=== PATIENT | female | born 1970 | race Caucasian/White ===

== ENCOUNTER 2018-11-18 06:56 | Day surgery (SDC) | payer OTHER ==
[2018-11-18 07:33] VITALS: BMI 25.7
[2018-11-18] MEDS ORDERED: ONDANSETRON 4 MG/2 ML VIAL IVPUSH PRN ×2 (09:50→16:32)
[2018-11-18] MEDS ORDERED: PROMETHAZINE HCL 25 MG/1 ML VIAL IVPUSH PRN (09:50)
[2018-11-18] MEDS ORDERED: LIDOCAINE HCL 1%, 10 MG/ML (20ML VIAL) ONE (09:52)
[2018-11-18] MEDS ORDERED: LACTATED RINGERS SOLUTION 1,000 ML IV SCH (10:00)
[2018-11-18] MEDS ORDERED: MIDAZOLAM HCL 2 MG/2 ML SINGLE DOSE VIAL ONE (10:03)
[2018-11-18] MEDS ORDERED: PROPOFOL 20 ML ONE (10:03)
[2018-11-18] MEDS ORDERED: LIDOCAINE HCL/PF 2% SDV 5ML VIAL ONE (10:05)
[2018-11-18] MEDS ORDERED: SODIUM CHLORIDE 0.9% P/F 10 ML VIAL IJ ONE (10:22)
[2018-11-18] MEDS ORDERED: ceFAZolin SODIUM 1 GM VIAL ONE (10:22)
[2018-11-18] MEDS ORDERED: ceFAZolin SODIUM 1 GM VIAL IVPB ONE (10:26)
[2018-11-18] MEDS ORDERED: LIDOCAINE HCL 1%, 10 MG/ML (20ML VIAL) NR ONE (10:48)
[2018-11-18] MEDS ORDERED: METHYLENE BLUE 1% 10 MG/1 ML VIAL NR ONE (10:48)
--- NOTE | 2018-11-18 12:53 | OP ---
DATE OF OPERATION: 11/18/2018 PREOPERATIVE DIAGNOSES: Left breast intraductal papilloma, left breast nipple discharge. SURGEON: Fernanda Thomson MD ANESTHESIA: Local, IV sedation. ESTIMATED BLOOD LOSS: Minimal. COMPLICATIONS: None. This was a sterile procedure. INDICATION FOR PROCEDURE: Patient presented with a bloody nipple discharge spontaneously from the left central slightly inner duct. She had a mammogram and ultrasound. The ultrasound noted a dilated duct with a nodule in the left breast 9 o'clock retroareolar location. She underwent a needle biopsy and pathology shows an intraductal papilloma. My recommendation was excision of the papilloma as well as a nipple duct exploration. The procedure was discussed with all her questions answered. PROCEDURE IN DETAIL: Patient brought to [facility] on [address]. Taken to breast imaging where a wire was used to localize the clip in the inner left breast. She was then brought into the operating room and after IV sedation, IV antibiotics the left breast was prepped and draped in the usual sterile fashion. The area on the inner and retroareolar left breast was anesthetized with 1% lidocaine without epinephrine. The brownish nipple discharge from the left 9 o'clock duct was noted. The duct was then dilated up to a No. 2 dilator and 0.2 mL of methylene blue was injected with a 20-gauge Angiocath into the duct for identification. A left breast periareolar incision was made in the inner left breast and the wire was used as a guide to get down to the area of interest. It was excised en bloc. This seemed to be pointing to the same duct with the discharge. The blue dye helped me identify the duct as well and distally the duct was taken up to the nipple dermis. This was tagged with a silk stitch at the nipple inner duct and the specimen was then sent for specimen radiograph. Specimen radiograph showed the clip and wire to be intact within the specimen. This was then sent to Pathology for permanent section. Hemostasis assured with electrocautery. The parenchyma approximated with interrupted 2-0 Vicryl. Skin approximated with interrupted 2-0 Vicryl and running 4-0 Biosyn. A sterile dressing with Tegaderm, 4 x 4's applied. She tolerated procedure well, was taken to recovery in good condition. FERNANDA THOMSON M.D. [id number]
[2018-11-18 13:39] VITALS: BP 118/65; PULSE 73; TEMP 97.9
[2018-11-18] MEDS ORDERED: oxyCODONE HCL 5 MG TABLET PO PRN ×2 (16:32)
--- NOTE | 2018-11-23 16:07 | PATH ---
Surgical Pathology Report Patient Name: HAILY MEJIA [facility]. Rec. #: [id number] /Age/Gender: 1970 (Age: 48) / F Account: [id number] Location: AMBULATORY SURG Taken: 11/18/2018 Received: 11/18/2018 Reported: 11/23/2018 Physicians: Fernanda Bull M.D. Specimen(s) Received LEFT BREAST EXCISIONAL BIOPSY Clinical History Left nipple discharge, left breast papilloma on needle biopsy Final Diagnosis BREAST, LEFT, EXCISION: INTRADUCTAL PAPILLOMA IN A BACKGROUND OF FIBROCYSTIC CHANGES INCLUDING STROMAL FIBROSIS, MICROCYSTS, APOCRINE METAPLASIA, AND COLUMNAR CELL CHANGES. CHANGES OF PREVIOUS BIOPSY PRESENT. Electronically Signed Tamara Samayoa M.D. Gross Description Received fresh and in [employer] labeled "left breast excisional biopsy," is a 3.5 x 3.1 x 1.6 cm portion of fibroadipose tissue with a suture marking the nipple end of the duct, per the surgeon. There is a needle localization wire present. There is no skin or nipple present. The nipple end of the duct is inked red, the opposing deep margin is inked black and the remainder of the specimen is inked blue. The specimen is serially sectioned from the nipple end to the deep margin. Sectioning reveals abundant dense, white, focally firm fibrous tissue. There is a robert metallic biopsy clip identified. No definitive mass is identified. The specimen is entirely and sequentially submitted in 6 cassettes with the nipple end in cassette 1, the deep margin in cassette 6 and the biopsy clip in cassette 4. Total formalin fixation time: Approximately 6 hours 11/18/201811/18/2018
== END 2018-11-18 13:46 | disposition home or self-care (01) ==
LOC: JASUSAT 06:56 → EDSTATUS 08:30 → JASUSAT 13:46
PROVIDERS: ATTEND Surgery
PROC: 0HBU0ZX Excision of Left Breast, Open Approach, Diagnostic (ICD-10-PCS; principal; 2018-11-18 10:00)
PROC: 0HJU0ZZ Inspection of Left Breast, Open Approach (ICD-10-PCS; 2018-11-18 10:00)
DX: D24.2 Benign neoplasm of left breast (principal); N64.52 Nipple discharge
CPT/HCPCS: 19281; 84703; 88307-TC; 94760